=== PATIENT | female | born 1935 | race Caucasian/White ===

== ENCOUNTER 2021-07-30 12:11 | Outpatient (CLI) | payer MEDICARE, OTHER, SELFPAY ==
--- NOTE | ~2021-07-30 | CT_ITS ---
EXAMINATION: CT soft tissue neck chest wo DATE: 07/30/2021 12:40 INDICATION: Squamous cell carcinoma. Breast cancer. TECHNIQUE: Computed tomography (CT) of the neck and chest was performed without intravenous contrast. Automated exposure control and iterative reconstruction technique were employed. The dose-length pro duct was 565.85 mGy-cm. COMPARISON: None FINDINGS: CT NECK: There are nodules in the thyroid measuring up to 5 mm, likely not clinically significant. Th ere are no pathologically enlarged lymph nodes. There is severe cervical spondylosis. The paranasal s inuses are clear. The mastoid air cells are normal. CT CHEST: There is mild scarring at the lung apices. There is moderate emphysema. There is mild atele ctasis bilaterally. There is mild peripheral radiation fibrosis in anterolateral left lung. There is a cluster of tree-in-bud opacities in lateral segment right middle lobe, likely inflammation or infec tion. No pleural effusion. Cardiomegaly is noted. No pericardial effusion. The central pulmonary enla rged, consistent with pulmonary arterial hypertension. There are surgical changes in anterior chest a t the skin. There is a 9 mm cyst in left kidney. There is a 10 x 17 mm right paratracheal lymph node. There is thoracic kyphosis and severe spondylosis. IMPRESSION: 1. Mildly enlarged right paratracheal lymph node, which may be reactive or less likely metastatic dis ease. Reviewed, dictated and finalized at location [facility] IMPRESSION: 1. Mildly enlarged right paratracheal lymph node, which may be reactive or less likely metastatic disease.
== END 2021-07-30 12:12 | disposition home or self-care (01) ==
LOC: ANHIMG 12:13
PROVIDERS: PCP Family Medicine
DX: C44.92 Squamous cell carcinoma of skin, unspecified (principal); Z85.3 Personal history of malignant neoplasm of breast; R59.0 Localized enlarged lymph nodes
CPT/HCPCS: 70490; 71250